=== PATIENT | female | born 1980 | race Caucasian/White ===

== ENCOUNTER 2019-02-26 13:08 | Emergency (ER) | payer OTHER ==
[~2019-02-26] VITALS: Ht 167.6 cm; Wt 76.2 kg
[2019-02-26] MEDS ORDERED: SUBOXONE 8 MG-1 EACH SL (13:47)
[2019-02-26] MEDS ORDERED: PROM25 PO (13:48)
[2019-02-26] MEDS ORDERED: MIRT15 PO (13:48)
[2019-02-26] MEDS ORDERED: TRAZ100 PO (13:49)
[2019-02-26] MEDS ORDERED: SUMA25 PO (13:49)
== END 2019-02-26 15:15 | disposition left against medical advice (07) ==
LOC: ER 13:08
DX: L25.9 Unspecified contact dermatitis, unspecified cause (principal); F17.210 Nicotine dependence, cigarettes, uncomplicated; Z79.899 Other long term (current) drug therapy
CPT/HCPCS: 99283